=== PATIENT | female | born 1990 | race Caucasian/White ===

== ENCOUNTER 2019-12-23 09:39 | Outpatient (CLI) | payer OTHER ==
[~2019-12-23] VITALS: Ht 167.6 cm; Wt 106.8 kg
[2019-12-23 09:49] VITALS: BP 125/79
[2019-12-23 10:29] LABS: MICROSCOPIC NOT IND
== END 2019-12-23 11:10 | disposition home or self-care (01) ==
LOC: LDOP 09:39
PROVIDERS: ATTEND Student in an Organized Health Care Education/Training Program
DX: O26.893 Other specified pregnancy related conditions, third trimester (principal); R10.9 Unspecified abdominal pain; Z3A.36 36 weeks gestation of pregnancy
CPT/HCPCS: 59025; 81003; 87086; 99211; G0463

== ENCOUNTER 2019-12-31 03:43 | Outpatient (CLI) | payer OTHER ==
[2019-12-31 04:13] VITALS: BP 96/71
== END 2019-12-31 05:30 | disposition home or self-care (01) ==
LOC: LDOP 03:43
PROVIDERS: ATTEND Student in an Organized Health Care Education/Training Program
DX: O26.893 Other specified pregnancy related conditions, third trimester (principal); R10.9 Unspecified abdominal pain; Z3A.37 37 weeks gestation of pregnancy
CPT/HCPCS: 59025; 99211; G0463

== ENCOUNTER 2019-12-31 17:39 | Outpatient (CLI) | payer OTHER ==
[~2019-12-31] VITALS: Ht 167.6 cm; Wt 106.8 kg
[2019-12-31 18:25] VITALS: BP 129/77
== END 2019-12-31 19:30 | disposition home or self-care (01) ==
LOC: LDOP 17:39
PROVIDERS: ATTEND Student in an Organized Health Care Education/Training Program
DX: O26.893 Other specified pregnancy related conditions, third trimester (principal); R10.9 Unspecified abdominal pain; Z3A.37 37 weeks gestation of pregnancy
CPT/HCPCS: 59025; 84112; 99211; G0463

== ENCOUNTER 2020-01-11 04:52 | Inpatient (IN) | payer OTHER ==
[~2020-01-11] VITALS: Ht 167.6 cm; Wt 106.8 kg
[2020-01-11] MEDS ORDERED: D5%-LACTATED RINGERS 1,000 ML IV SCH (08:12)
[2020-01-11] MEDS ORDERED: OXYTOCIN 30U/ 0.9% NaCL 500ML 500 ML IV PRN (08:12)
[2020-01-11] MEDS ORDERED: OXYTOCIN 30U/ 0.9% NaCL 500ML 500 ML IV ONE (08:12)
[2020-01-11] MEDS ORDERED: TERBUTALINE 1 MG/ML, 1ML SQ PRN (08:30)
[2020-01-11] MEDS ORDERED: FENTANYL PF 100 MCG/2ML IVPush PRN (08:30)
[2020-01-11] MEDS ORDERED: MISOPROSTOL 25 MCG TABLET VG PRN (08:30)
[2020-01-11] MEDS ORDERED: ONDANSETRON 2MG/ML, 2ML IVPush PRN (08:30)
[2020-01-11] MEDS ORDERED: FENTANYL PF 100 MCG/2ML IV PRN (08:30)
[2020-01-11] MEDS ORDERED: TERBUTALINE 1 MG/ML, 1ML IVPush PRN (08:30)
[2020-01-11] MEDS ORDERED: CALCIUM CARBONATE 500 MG TAB.CHEW PO PRN (08:30)
[2020-01-11] MEDS ORDERED: PLEASE ENTER HEIGHT AND WEIGHT MC SCH (08:30)
[2020-01-11] MEDS ORDERED: MISOPROSTOL 25 MCG TABLET ONE ×2 (08:45→12:40)
[2020-01-11 08:46] LABS: BASOPHILS # (AUTO) 0.02 x10^3/uL (0-0.1); BASOPHILS % (AUTO) 0 % (0-1); EOSINOPHILS # (AUTO) 0.06 x10^3/uL (0-0.4); EOSINOPHILS % (AUTO) 1 % (1-7); LYMPHOCYTES # (AUTO) 1.67 x10^3/uL (1-3.4); LYMPHOCYTES % (AUTO) 26 % (22-44); MD NO; MEAN CORPUSCULAR HEMOGLOBIN 32.7 pg (27.0-34.8); MEAN CORPUSCULAR HGB CONC 33.7 g/dL (32.4-35.8); MEAN PLATELET VOLUME 8.5 fL (7.4-10.4); MONOCYTES # (AUTO) 0.49 x10^3/uL (0.2-0.8); MONOCYTES % (AUTO) 8 % (2-9); NEUTROPHILS # (AUTO) 4.22 x10^3/uL (1.8-6.8); NEUTROPHILS % (AUTO) 65 % (42-75); PLATELET COUNT 262 x10^3/uL (130-400); RED BLOOD COUNT 3.19 x10^6/uL (3.82-5.3); RED CELL DISTRIBUTION WIDTH 14.1 % (9.6-15.2)
[2020-01-11] MEDS ORDERED: VANCOMYCIN 2,000 MG in SODIUM CHLORIDE 0.9% 500 ML IV ONE (10:00)
[2020-01-11] MEDS: LACTATED RINGERS 1,000 ML IV SCH ×2 (10:03→21:51)
[2020-01-11 10:05] LABS: CREATININE 0.58 mg/dL (0.55-1.02)
[2020-01-11] MEDS ORDERED: MISOPROSTOL 200 MCG TABLET ONE (12:41)
[2020-01-11] MEDS ORDERED: OXYTOCIN 30U/ 0.9% NaCL 500ML 500 ML ONE (12:41)
[2020-01-11] MEDS ORDERED: LIDOCAINE 1%, 20ML ONE (12:41)
[2020-01-11] MEDS ORDERED: FENTANYL PF 100 MCG/2ML ONE ×2 (18:38→21:57)
[2020-01-11] MEDS ORDERED: VANCOMYCIN PMX 1GM/200ML 200 ML IVPB SCH (22:00)
[2020-01-12] MEDS ORDERED: FENTANYL/BUPIV./NS/PF 0 ML EPIDCONT ONE (00:16)
[2020-01-12] MEDS ORDERED: TERBUTALINE 1 MG/ML, 1ML ONE (00:24)
[2020-01-12] MEDS ORDERED: NEWBORN KIT ONE (00:28)
[2020-01-12 00:46] VITALS: BP 141/67
[2020-01-12] MEDS ORDERED: OXYTOCIN 30U/ 0.9% NaCL 500ML 500 ML ONE (01:20)
[2020-01-12] MEDS: OXYTOCIN 30U/ 0.9% NaCL 500ML 500 ML IV SCH ×3 (01:24→21:24)
[2020-01-12] MEDS ORDERED: CARBOPROST TROMETHAMINE 250 MCG/ML, 1ML IM PRN (01:30)
[2020-01-12] MEDS ORDERED: METHYLERGONOVINE 0.2 MG/ML IM PRN (01:30)
[2020-01-12] MEDS ORDERED: OXYcodone IR 5MG TABLET PO PRN (01:30)
[2020-01-12] MEDS ORDERED: SIMETHICONE 80 MG CHEW TAB PO PRN (01:30)
[2020-01-12] MEDS ORDERED: OXYcodone/APAP 5/325MG TABLET PO PRN (01:30)
[2020-01-12] MEDS ORDERED: ONDANSETRON 2MG/ML, 2ML IV PRN (01:30)
[2020-01-12] MEDS ORDERED: ACETAMINOPHEN 325 MG TABLET PO PRN (01:30)
[2020-01-12] MEDS ORDERED: GLYCERIN ADULT SUPP PR PRN (01:30)
[2020-01-12] MEDS ORDERED: MISOPROSTOL 200 MCG TABLET PR PRN (01:30)
[2020-01-12] MEDS ORDERED: DOCUSATE 100 MG CAPSULE PO PRN (01:30)
[2020-01-12] MEDS ORDERED: IBUPROFEN 800 MG TABLET PO PRN (01:30)
[2020-01-12] MEDS ORDERED: METOCLOPRAMIDE 5 MG/ML, 2ML IV PRN (01:30)
[2020-01-12] MEDS ORDERED: BISACODYL 10 MG SUPP PR PRN (01:30)
[2020-01-12] MEDS ORDERED: IBUPROFEN 600 MG TABLET ONE (01:42)
[2020-01-12] MEDS ORDERED: IBUPROFEN 800 MG TABLET ONE (01:42)
[2020-01-12] MEDS: IBUPROFEN 600 MG TABLET PO PRN ×2 (01:45→19:55)
[2020-01-12] MEDS ORDERED: SERT50TA PO (02:12)
[2020-01-12 03:05] VITALS: BP 102/67
[2020-01-12] MEDS: SERTRALINE 50MG TABLET PO SCH (07:36)
[2020-01-12] MEDS: PRENATAL VIT/IRON/FA 1 EACH TABLET PO SCH (07:36)
[2020-01-12 07:39] VITALS: BP 99/66
[2020-01-12 08:23] LABS: BASOPHILS # (AUTO) 0.02 x10^3/uL (0-0.1); BASOPHILS % (AUTO) 0 % (0-1); EOSINOPHILS % (AUTO) 0 % (1-7); LYMPHOCYTES # (AUTO) 1.67 x10^3/uL (1-3.4); LYMPHOCYTES % (AUTO) 15 % (22-44); MD NO; MEAN CORPUSCULAR HEMOGLOBIN 32.8 pg (27.0-34.8); MEAN CORPUSCULAR HGB CONC 33.9 g/dL (32.4-35.8); MEAN PLATELET VOLUME 8.3 fL (7.4-10.4); MONOCYTES # (AUTO) 0.55 x10^3/uL (0.2-0.8); MONOCYTES % (AUTO) 5 % (2-9); NEUTROPHILS # (AUTO) 8.64 x10^3/uL (1.8-6.8); NEUTROPHILS % (AUTO) 79 % (42-75); PLATELET COUNT 233 x10^3/uL (130-400); RED BLOOD COUNT 2.81 x10^6/uL (3.82-5.3); RED CELL DISTRIBUTION WIDTH 14.2 % (9.6-15.2)
[2020-01-12 11:43] VITALS: BP 102/69
[2020-01-12 16:41] VITALS: BP 115/71
[2020-01-12 19:45] VITALS: BP 108/72
[2020-01-13 00:30] VITALS: BP 112/75
[2020-01-13] MEDS: OXYTOCIN 30U/ 0.9% NaCL 500ML 500 ML IV SCH (07:24)
[2020-01-13 08:00] VITALS: BP 111/70
[2020-01-13] MEDS ORDERED: FERR325T23 PO (09:12)
[2020-01-13] MEDS ORDERED: IBUP-1223 PO (09:14)
[2020-01-13] MEDS: PRENATAL VIT/IRON/FA 1 EACH TABLET PO SCH (09:36)
[2020-01-13] MEDS: SERTRALINE 50MG TABLET PO SCH (09:36)
== END 2020-01-13 12:32 | disposition home or self-care (01) | DRG 806 ==
LOC: LDIP 07:53 → 2NW 01-12 02:43
PROVIDERS: ADMIT Student in an Organized Health Care Education/Training Program; ATTEND Student in an Organized Health Care Education/Training Program
PROC: 10D07Z6 Extraction of Products of Conception, Vacuum, Via Natural or Artificial Opening (ICD-10-PCS; principal; 2020-01-12)
PROC: 0KQM0ZZ Repair Perineum Muscle, Open Approach (ICD-10-PCS; 2020-01-12)
DX: O40.3XX0 Polyhydramnios, third trimester, not applicable or unspecified (principal); D62 Acute posthemorrhagic anemia; Z37.0 Single live birth; O76 Abnormality in fetal heart rate and rhythm complicating labor and delivery; O70.1 Second degree perineal laceration during delivery; O99.214 Obesity complicating childbirth; O99.284 Endocrine, nutritional and metabolic diseases complicating childbirth; O99.344 Other mental disorders complicating childbirth; O99.824 Streptococcus B carrier state complicating childbirth; Z3A.39 39 weeks gestation of pregnancy; Z80.8 Family history of malignant neoplasm of other organs or systems; F41.9 Anxiety disorder, unspecified; F32.9 Major depressive disorder, single episode, unspecified; E66.01 Morbid (severe) obesity due to excess calories; O90.81 Anemia of the puerperium; E03.9 Hypothyroidism, unspecified; Z82.3 Family history of stroke; Z82.49 Family history of ischemic heart disease and other diseases of the circulatory system; Z88.0 Allergy status to penicillin; Z90.49 Acquired absence of other specified parts of digestive tract
CPT/HCPCS: 36415; 82565; 82803; 84520; 85025; 86592; 86850; 86900; 87635; G0378; J3010; J3370; J2590; J7040; J7120